=== PATIENT | female | born 1970 ===

== ENCOUNTER → 2019-08-14 | Outpatient (CLI) | payer OTHER ==
[~2019-08-14] MED LIST: BUCALSEP SPRAY30 ML MM; ZITHROMAX200 MG PO
== END | disposition home or self-care (01) ==
LOC: RAD 10:56
DX: M54.5 Low back pain (principal)

== ENCOUNTER 2019-11-12 14:27 | Outpatient (CLI) | payer OTHER | END 2019-11-12 14:35 | disposition home or self-care (01) | LOC: RAD 14:27 | PROVIDERS: ATTEND Internal Medicine Endocrinology, Diabetes & Metabolism | DX: M19.041 Primary osteoarthritis, right hand (principal) ==

== ENCOUNTER 2020-07-15 12:10 | Outpatient (CLI) | payer OTHER | END 2020-07-15 13:00 | disposition home or self-care (01) | LOC: NUCLEAR 12:10 | PROVIDERS: ATTEND Internal Medicine Endocrinology, Diabetes & Metabolism | DX: M85.89 Other specified disorders of bone density and structure, multiple sites (principal); Z13.820 Encounter for screening for osteoporosis ==

== ENCOUNTER → 2020-07-15 | Outpatient (CLI) | payer OTHER | END | disposition home or self-care (01) | LOC: MAMO-SONO 13:45 | PROVIDERS: ATTEND Internal Medicine | DX: N60.02 Solitary cyst of left breast (principal); Z12.31 Encounter for screening mammogram for malignant neoplasm of breast; D49.3 Neoplasm of unspecified behavior of breast ==